=== PATIENT | male | born 1945 | race Caucasian/White ===

== ENCOUNTER 2017-05-27 17:07 | Inpatient (IN) | payer OTHER ==
[2017-05-27 17:53] LABS: #Basophils 0.1 thou/uL (0.0-0.2); #Eosinphils 0.3 thou/uL (0.0-0.7); #Lymphocytes 1.2 thou/uL (1.20-3.40); #Monocytes 0.8 thou/uL (0.11-0.59); #Neutrophils 10.2 thou/uL (1.40-6.50); %Basophils 0.5 % (0.0-1.0); %Eosinophils 2.4 % (0.0-10.0); %Lymphocytes 9.3 % (21.0-51.0); %Monocytes 6.7 % (0.0-10.0); Hematocrit 41.9 % (42.0-52.0); Mean Platelet Volume 7.6 fL (7.4-10.4); Red Blood Cell (RBC) Count 4.82 mill/uL (4.70-6.10); White Blood Cell (WBC) Count 12.6 thou/uL (4.8-10.8)
[2017-05-27 18:02] LABS: PTT 26.5 SEC (22.9-36.1); Prothrombin Time 13.9 SEC (12.0-14.7)
[2017-05-27 18:15] LABS: ALT (SGPT) 23 U/L (8-55); AST (SGOT) 19 U/L (5-34); Alkaline Phosphatase 79 U/L (40-150); Anion Gap 14 mmol/L (10-20); BUN (Urea Nitrogen) 23 mg/dL (8.4-25.7); Bilirubin, Total 0.5 mg/dL (0.2-1.2); Calc. Creatinine Clearance 0 mL/min (70-130); Calcium 9.2 mg/dL (7.8-10.44); Carbon Dioxide 22 mmol/L (23-31); Chloride 103 mmol/L (98-107); Estimated GFR-MDRD 49; Globulin 2.7 g/dL (2.4-3.5); Protein, Total 6.3 g/dL (5.8-8.1)
--- NOTE | 2017-05-27 18:16 | RAD ---
EXAM: LEFT HIP TWO VIEWS 05/27/17 HISTORY: Fall. Pain. COMPARISON: None. FINDINGS: Evaluation is limited due to patient position. Nevertheless, there appears to be an impacted, minima lly displaced fracture involving the femoral neck. IMPRESSION: Left femoral neck fracture. POS: LM
--- NOTE | 2017-05-27 18:19 | RAD ---
EXAM: ONE VIEW CHEST 05/27/17 HISTORY: Fracture. Preoperative exam. COMPARISON: None. FINDINGS: Portable supine view of the chest demonstrates mild rightward deviation of the trachea. Cardiac silh ouette is within normal limits. Pulmonary vessels are within normal limits. The lung volumes are sli ghtly diminished. Opacification of the left lower lobe may represent an area of atelectasis. No pneu mothorax on the supine projection. No osseous abnormalities. IMPRESSION: 1. Left lower lobe atelectasis. 2. Mild rightward deviation of the trachea, nonspecific. Nonemergent chest can be performed for better evaluation. POS: LM
[2017-05-27] MEDS ORDERED: Ondansetron HCl/PF 4 MG/2 ML Vial IVP PRN (19:59)
[2017-05-27] MEDS ORDERED: Acetaminophen 325 MG TAB PO PRN (19:59)
[2017-05-27] MEDS ORDERED: HYDROcodone/Acetaminophen 5/325 mg Tablet PO PRN ×2 (19:59)
[2017-05-27] MEDS ORDERED: Sodium Chloride 0.9% 1,000 ML IV SCH (19:59)
[2017-05-27] MEDS ORDERED: Ondansetron ODT 4 MG TAB SL PRN (19:59)
[2017-05-28 01:42] VITALS: BMI 29.9
[2017-05-28] MEDS ORDERED: CEFAZOLIN/Water 2 GM/20 ML SYRINGE SLOW IVP SCH (06:15)
[2017-05-28] MEDS ORDERED: CEFAZOLIN/Water 2 GM/20 ML SYRINGE ONE (08:05)
--- NOTE | 2017-05-28 08:30 | CON ---
DATE OF CONSULTATION: 05/28/2017 HISTORY OF PRESENT ILLNESS: Mr. Chen is a 71-year-old gentleman who is an inmate at [facility] when he became dizzy today and landed on the toilet and suffered a left hip fracture. PAST MEDICAL HISTORY: Positive for diabetes, hypertension, hypothyroidism, and asthma. ALLERGIES TO MEDICATIONS: Unsure. SOCIAL HISTORY: He does not smoke. He does not drink. He is an inmate at [facility]. PHYSICAL EXAMINATION: Left leg is shortened and in external rotation, pain with manipulation. Sensation is intact distall y. Radiographs showed displaced femoral neck fracture. PLAN: Total hip arthroplasty. He understands the risks of infection, stiffness, nerve or blood ves rocky damage, dislocation, transfusion, , and would like to proceed with surgery.
[2017-05-28] MEDS ORDERED: Fentanyl 100 MCG/2 ML VIAL ONE (09:00)
[2017-05-28] MEDS ORDERED: Ketorolac Tromethamine 30 MG/ML VIAL ONE (09:31)
[2017-05-28] MEDS ORDERED: Lidocaine 2% MPF 10 ML AMP (For Epidural Use) ONE (09:31)
[2017-05-28] MEDS ORDERED: Esmolol 100 MG/10 ML VIAL ONE (09:31)
[2017-05-28] MEDS ORDERED: Propofol 200 MG/20 ML VIAL ONE (09:31)
[2017-05-28] MEDS ORDERED: Succinylcholine Chloride 20 MG/ML 10 ml SYRINGE FS ONE (09:31)
[2017-05-28] MEDS ORDERED: Glycopyrrolate 0.2 MG/ML 5 ML SYRINGE ONE (09:31)
[2017-05-28] MEDS ORDERED: Metoprolol Tartrate 5 MG/5 ML VIAL ONE (09:31)
[2017-05-28] MEDS ORDERED: Metoclopramide HCl 10 MG/2 ML VIAL ONE (09:31)
[2017-05-28] MEDS ORDERED: Ondansetron HCl/PF 4 MG/2 ML Vial ONE (09:31)
[2017-05-28] MEDS ORDERED: Promethazine HCl 25 MG/ML VIAL IM PRN ×2 (09:33→10:47)
[2017-05-28] MEDS ORDERED: traMADol HCl 50 MG TAB PO PRN ×2 (09:33→12:07)
[2017-05-28] MEDS ORDERED: Acetaminophen 325 MG TAB PO PRN (09:33)
[2017-05-28] MEDS ORDERED: Zolpidem Tartrate 5 MG TAB PO PRN (09:33)
[2017-05-28] MEDS ORDERED: HYDROcodone/Acetaminophen 10/325 mg Tablet PO PRN ×2 (09:33)
[2017-05-28] MEDS ORDERED: diphenhydrAMINE 25 MG CAP PO PRN (09:33)
[2017-05-28] MEDS ORDERED: Ondansetron HCl/PF 4 MG/2 ML Vial IVP PRN ×2 (09:33→10:47)
[2017-05-28] MEDS ORDERED: Fentanyl 100 MCG/2 ML VIAL SLOW IVP PRN ×2 (09:33)
[2017-05-28] MEDS ORDERED: Tranexamic Acid 1,000 MG/100 ML BAG ONE ×2 (09:36→11:25)
[2017-05-28] MEDS ORDERED: Tranexamic Acid 1,000 MG in Sodium Chloride 0.9% 100 ML IVPB SCH (09:45)
[2017-05-28] MEDS ORDERED: Meperidine HCl/PF 25 MG/ML VIAL SLOW IVP PRN (10:47)
[2017-05-28] MEDS ORDERED: HYDROmorphone 2 MG/ML VIAL SLOW IVP PRN (10:47)
[2017-05-28] MEDS ORDERED: Promethazine HCl 25 MG/ML VIAL SLOW IVP PRN (10:47)
[2017-05-28] MEDS ORDERED: PROVENTIL INHALER 6.7 G (200 INHALATIONS) INH PRN (11:34)
[2017-05-28] MEDS ORDERED: HumaLOG 300 UNITS/3 ML VIAL SC PRN (11:36)
[2017-05-28] MEDS ORDERED: Dextrose 50% Abboject 50 ML SYRINGE SLOW IVP PRN (11:36)
[2017-05-28] MEDS ORDERED: Dextrose 5% in Water 1,000 ML IV PRN (11:36)
[2017-05-28] MEDS ORDERED: Sodium Chloride 0.9% 1,000 ML IV SCH (11:45)
[2017-05-28] MEDS ORDERED: traMADol HCl 50 MG TAB PO SCH (12:15)
--- NOTE | 2017-05-28 12:56 | RAD ---
LEFT HIP 2 VIEWS: HISTORY: A 71-year-old male recent status post total hip replacement. COMPARISON: 05/27/17. FINDINGS: Recent left total hip replacement changes without evidence for dislocation or periprosthetic fractur e. IMPRESSION: Recent left total hip replacement. POS: LM
[2017-05-28] MEDS: HumaLOG 300 UNITS/3 ML VIAL SC PRN ×2 (13:25→17:10)
[2017-05-28] MEDS: Acetaminophen 500 MG TAB PO SCH ×3 (13:41→23:40)
--- NOTE | 2017-05-28 13:45 | OP ---
DATE OF PROCEDURE: 05/27/2017 PREOPERATIVE DIAGNOSES: Left hip subcapital displaced angulated femoral neck fracture with accompanying underlying osteoarthritis. POSTOPERATIVE DIAGNOSES: Left hip subcapital displaced angulated femoral neck fracture with accompanying underlying osteoarthritis. OPERATIVE PROCEDURE: Press-fit left total hip arthroplasty. SURGEON: Hugo Beyer M.D. STITCHER AROUND: Daquan Mckenna PA-C. ANESTHESIA: General via endotracheal tube. COMPONENTS USED: [facility] Tritanium press-fit 56 mm acetabular shell with an Accolade press-fit 3.5 hip stem, 10 degree polyethylene fixed bearing insert, and V40 metallic femoral head standard offset. FINDINGS: Subcapital displaced angulated femoral neck fracture as described in radiographs. ESTIMATED BLOOD LOSS: 200. DRAINS: None. SPECIMENS: None. COMPLICATIONS: None. COUNTS: Correct. INDICATIONS FOR SURGERY: Og is a 71-year-old male who was transferred to our facility from incarceration. Apparently, he fell resulting in a left hip fracture. He has been admitted by the Trauma Team and our service was consulted for definitive orthopedic management of this problem. PROCEDURE IN DETAIL: After informed consent was obtained in the preoperative holding area, the patient was taken to the operative suite where general anesthesia was induced. The patient was then positioned in the lateral decubitus position. The hip was then prepped and draped in usual sterile fashion. The patient received preoperative antibiotics. Prior to incision, time-out was called and all members of the surgical team agreed upon site, surgeon, and patient. After this, a longitudinal incision was made directly over the trochanter, noted by palpation extending 2 fingerbreadths above and below the trochanter. The deeper subcutaneous layer was undermined with Bovie electrocautery. The iliotibial band was encountered and incised sharply and the plane below this was developed bluntly. A Charnley retractor was placed to hold this opened. The lateral aspect of the trochanter and the abductor muscles were encountered and then reflected anteriorly off the trochanter using Bovie electrocautery. After capsulectomy was performed, copious hemarthrosis was identified. The fracture fragments were noted confirming evidence of fracture at the time of surgery. Provisional neck cut was made using an oscillating saw and the femoral head was then extracted. Attention was then turned to acetabular preparation and sequential reaming was carried out up to the appropriate diameter and a trial was then malleted into place with good firm resistance and no pullout. The permanent acetabular shell was then malleted squarely into place, as was the appropriate liner. Once completed, the wound was copiously irrigated and attention was then turned to femoral preparation. Flexion and external rotation was performed of the exposed thigh and femoral elevators were then placed at the proximal aspect of the wound. Canal finder was used to establish the length of the canal and sequential reaming was carried out, followed by broaching. Once the appropriate stability was established with the trial broaches with both flexion, extension and rotational stability, we did trial with neutral and 2 mm offset incremental necks. Once the appropriate size was decided upon, with good stability noted with flexion, extension, internal and external rotation and shuck being negative , we removed the femoral trial broach and malletted into place the permanent prosthesis with good firm fit, which was also stable to rotation. Again, the hip felt very stable to flexion, extension, internal and external rotation. Leg lengths appeared near anatomic clinically and we were quite happy with prosthesis placement. Copious irrigation was then carried out through the entirety of the wound. Primary closure of the abductors was accomplished with interrupted #2 Vicryl [id number] stitches and the IT band was then closed with interrupted #2 Vicryl, oversewn with a #2 running barbed Quill stitch. Subcutaneous fascia was closed with running barbed Quill stitch and a subcuticular Monocryl barbed Quill stitch was used for skin closure and augmented with skin cement. A sterile dressing was applied. The procedure was terminated without any complication. All counts were correct. The patient was awakened in the operative suite and taken to the recovery room in stable condition. NANCY
--- NOTE | 2017-05-28 14:18 | PDOC.PN ---
- Subjective Encounter Start Date: 05/28/17 Encounter Start Time: 14:16 Subjective: pt seen and examined.Denies any chest pain/sob.no nausea/vomiting/AP -: s/p left THR for fall and fracture -: care discussed using writing board as pt is deaf - Objective MAR Reviewed: Yes Vital Signs & Weight: Vital Signs (12 hours) Temp Pulse Resp BP Pulse Ox 05/28/17 13:35 98 05/28/17 04:00 98.1 F 64 18 133/78 98 Weight Admit Weight 226 lb 15.968 oz Weight 226 lb 15.968 oz I&O: 05/27/17 05/28/17 05/29/17 06:59 06:59 06:59 Intake Total 1027.5 Output Total 1075 Balance -47.5 Result Diagrams: 05/27/17 17:45 05/27/17 17:45 Additional Labs: Accuchecks 05/28/17 05/27/17 06:06 21:13 POC Glucose 129 H 122 H Phys Exam - Physical Examination Constitutional: NAD HEENT: PERRLA, sclera anicteric, oral pharynx no lesions mucosa is dry Neck: no nodes, no JVD, supple, full ROM Respiratory: no wheezing, no rales, no rhonchi, clear to auscultation bilateral Cardiovascular: RRR, no significant murmur, no rub, gallop Gastrointestinal: soft, non-tender, no distention, positive bowel sounds Musculoskeletal: no edema, pulses present Neurological: non-focal, normal sensation, moves all 4 limbs Psychiatric: normal affect, A&O x 3 Skin: no rash Dx/Plan (1) JEFERSON (acute kidney injury) Code(s): N17.9 - ACUTE KIDNEY FAILURE, UNSPECIFIED Status: Acute (2) DM2 (diabetes mellitus, type 2) Status: Chronic Qualifiers: Diabetes mellitus complication status: with hyperglycemia (3) HTN (hypertension) Code(s): I10 - ESSENTIAL (PRIMARY) HYPERTENSION Status: Chronic Qualifiers: Hypertension type: essential hypertension Qualified Code(s): I10 - Essential (primary) hypertension (4) HLD (hyperlipidemia) Code(s): E78.5 - HYPERLIPIDEMIA, UNSPECIFIED Status: Chronic (5) Asthma Code(s): J45.909 - UNSPECIFIED ASTHMA, UNCOMPLICATED Status: Chronic Qualifiers: Asthma severity: mild (6) S/P total hip arthroplasty Code(s): Z96.649 - PRESENCE OF UNSPECIFIED ARTIFICIAL HIP JOINT Status: Acute Qualifiers: Laterality: left Qualified Code(s): Z96.642 - Presence of left artificial hip joint (7) Leucocytosis Code(s): D72.829 - ELEVATED WHITE BLOOD CELL COUNT, UNSPECIFIED Status: Acute (8) Fall Code(s): W19.XXXA - UNSPECIFIED FALL, INITIAL ENCOUNTER Status: Acute Qualifiers: Encounter type: initial encounter Qualified Code(s): W19.XXXA - Unspecified fall, initial encounter - Plan PT/OT, incentive spirometry, DVT proph w/SCDs add ISS and accuchecks achs.hold metformin for JEFERSON. -: start IVF and recheck labs in am. -: WBC slightly high -likley reactive.monitor. -: restart home meds, -: hemodynamically stable. will follow. * .ASA BID for DVT prophylaxis. * PPI for GI prophylaxis. Review of Systems - Review of Systems Constitutional: negative: Fever, Chills, Sweats, Weakness, Malaise, Other Respiratory: negative: Cough, Dry, Shortness of Breath, Hemoptysis, SOB with Excertion, Pleuritic Pain, Sputum, Wheezing Cardiovascular: negative: Chest Pain, Palpitations, Orthopnea, Paroxysmal Noc. Dyspnea, Edema, Light Headedness, Other Gastrointestinal: negative: Nausea, Vomiting, Abdominal Pain, Diarrhea, Constipation, Melena, Hematochezia, Other Genitourinary: negative: Dysuria, Frequency, Incontinence, Hematuria, Retention , Other Musculoskeletal: negative: Neck Pain, Shoulder Pain, Arm Pain, Back Pain, Hand Pain, Leg Pain, Foot Pain, Other Neurological: negative: Weakness, Numbness, Incoordination, Change in Speech, Confusion, Seizures, Other - Medications/Allergies Allergies/Adverse Reactions: Allergies Allergy/AdvReac Type Severity Reaction Status Date / Time GLYCOAMINOGLYCANS Allergy Uncoded 05/28/17 01:23 Medications: Current Medications Acetaminophen (Tylenol) 1,000 mg PO Q6HR UNIQUE Last Admin: 05/28/17 13:41 Dose: 1,000 mg Albuterol Sulfate (Proventil Hfa) 1 puff INH QID PRN PRN Reason: SOB &/or Wheezing Albuterol/Ipratropium (Duoneb) 3 ml NEB [id number] PRN PRN Reason: SOB &/or Wheezing Aspirin (Aspirin) 325 mg PO BID [facility] Atorvastatin Calcium (Lipitor) 10 mg PO DAILY [facility] Cefazolin Sodium (Ancef) 2 gm SLOW IVP 0000,0800,1600 [facility] Stop: 05/29/17 00:01 Dextrose/Water (Dextrose 50%) 25 gm SLOW IVP PRN PRN PRN Reason: Hypoglycemia Diphenhydramine HCl (Benadryl) 25 mg PO Q6H PRN PRN Reason: Itching Ferrous Gluconate (Fergon) 324 mg PO BID [facility] Glipizide (Glucotrol) 10 mg PO DAILY-AC [facility] Glucagon (Glucagon) 1 mg IM PRN PRN PRN Reason: Hypoglycemia Dextrose/Water (D5w) 1,000 mls @ 0 mls/hr IV .Q0M PRN; As Directed PRN Reason: Hypoglycemia Sodium Chloride (Normal Saline 0.9%) 1,000 mls @ 75 mls/hr IV .[id number] [facility] Last Admin: 05/28/17 13:50 Dose: Not Given Insulin Human Lispro (Humalog) 0 units SC .MODERATE SLIDING SC PRN PRN Reason: Moderate Correctional Scale Insulin Human Lispro (Humalog) 0 units SC .BEDTIME SLIDING SC PRN PRN Reason: Bedtime Correctional Scale Iron/Minerals/Multivitamins (Theragran M) 1 tab PO DAILY [facility] Levothyroxine Sodium (Synthroid) 50 mcg PO 0600 [facility] Mometasone Furoate (Asmanex Hfa 100 Mcg) 1 puff INH BID-RT [facility] Ondansetron HCl (Zofran) 4 mg IVP Q6H PRN PRN Reason: Nausea/Vomiting Pantoprazole Sodium (Protonix) 40 mg PO DAILY [facility] Promethazine HCl (Phenergan) 12.5 mg IM Q4H PRN PRN Reason: Nausea/Vomiting Senna/Docusate Sodium (Senokot S) 2 tab PO BID [facility] Sodium Chloride (Flush - Normal Saline) 10 ml IVF PRN PRN PRN Reason: Saline Flush Tramadol HCl (Ultram) 50 mg PO Q6H PRN PRN Reason: mod-severe pain Verapamil HCl (Calan Sr) 120 mg PO BID [facility]
--- NOTE | 2017-05-28 14:20 | CT ---
CT OF THE BRAIN WITHOUT CONTRAST 05/28/17 COMPARISON: None. HISTORY: Fall with head trauma. Patient is on aspirin. TECHNIQUE: Multiple contiguous axial images were obtained in a CT of the brain without contrast. FINDINGS: The brain is normal in morphology and attenuation without focal lesions or confluent areas of infarc tion. There is no evidence of hydrocephalus, intracranial hemorrhage or extra-axial fluid collection . The calvarium and overlying soft tissues are unremarkable. Postsurgical changes are seen in the left mastoid region. IMPRESSION: No evidence of acute intracranial abnormality. POS: [facility]
--- NOTE | 2017-05-28 14:27 | CT ---
CT OF THE CERVICAL SPINE WITHOUT CONTRAST: 05/28/17 COMPARISON: None. HISTORY: Fall with head trauma and neck pain. TECHNIQUE: Multiple contiguous axial images were obtained in a CT of the cervical spine without contrast. Sagit papo and coronal reformats were performed. FINDINGS: There are moderate degenerative changes in the cervical spine. The vertebral bodies demonstrate norm al height and alignment without fracture or subluxation. No prevertebral soft tissue swelling is see n. The posterior facets are well aligned. Normal alignment of the skull base with the cervical spine is seen. IMPRESSION: Moderate degenerative changes of the cervical spine without acute osseous abnormality. POS: LM
[2017-05-28] MEDS: traMADol HCl 50 MG TAB PO SCH ×2 (14:57→20:39)
--- NOTE | 2017-05-28 15:34 | HP ---
DATE OF ADMISSION: 05/28/2017 ATTENDING PHYSICIAN: Pedro Pagan M.D. TRAUMA ACTIVATION: Not applicable. HISTORY OF PRESENT ILLNESS: Og Chen is a 71-year-old male who was admitted overnight by the [facility] opedic Service. Trauma Services was informed of admission this a.m. Per documentation, the patient is a prisoner and fell while getting up from the toilet. He states that his legs gave out, which c aused the fall. He was evaluated in [facility] and found to have a left hip fracture. He w as transferred to [facility] for further management of this injury. There is a report of t he patient striking his head. There is no CT scan of the brain or C-spine available. The patient d enies loss of consciousness. There is report of some dizziness. The patient is deaf; however, he d oes not know how to sign. History obtained is primarily from records review given patient's limited ability to hear. PAST MEDICAL HISTORY: The patient has a history of chronic low back pain, diabetes, hypertension, h ypothyroidism, and asthma as well as hearing loss. ALLERGIES: He has a reported history of allergies to GLYCOSAMINOGLYCANS. HOME MEDICATIONS: List includes atorvastatin 10 mg p.o. at bedtime, aspirin 81 mg p.o. daily, calci um, vitamin D3 supplement, glipizide 10 mg p.o. daily, hydrochlorothiazide 25 mg p.o. daily, Synthro id 50 mcg p.o. daily, lisinopril 20 mg p.o. daily, metformin 500 mg p.o. b.i.d., omeprazole 20 mg p. o. daily, potassium supplementation 20 mEq p.o. b.i.d., Proventil HFA 4 times a day p.r.n., Qvar b.i .d., verapamil 100 mg p.o. b.i.d. PAST SURGICAL HISTORY: Unclear at this time. SOCIAL HISTORY: He is currently an inmate at [facility]. Denies alcohol, tobacco or illic it drug use. FAMILY HISTORY: Unclear at this time. REVIEW OF SYSTEMS: Positive for dizziness and vertigo. PHYSICAL EXAMINATION: VITAL SIGNS: This morning temperature 98.1, pulse 64, respirations 18, O2 sat 98% on 2 liters via n pipo cannula, blood pressure 133/78. GENERAL: Well-developed male in no acute distress, resting in bed. PULMONARY: Normal work of breathing. Symmetric rise. CARDIOVASCULAR: Regular rate and rhythm. GASTROINTESTINAL: Abdomen is soft, nontender, nondistended. MUSCULOSKELETAL: Bilateral upper extremities within normal limits. Left lower extremity is shorten ed and externally rotated with limited range of motion secondary to pain. He is neurovascularly int act distal to the site of injury. NEUROLOGIC: No focal deficit noted. LABORATORY FINDINGS: WBC 12.6, hemoglobin 13.4, hematocrit 41.9, platelet count 230. INR 1.1. Sod ium 135, potassium 4.2, chloride 103, carbon dioxide 22, BUN 23, creatinine 1.42, glucose 129. AST a nd ALT within normal limits. RADIOGRAPHIC FINDINGS: Chest x-ray was read by Radiology, was read as left lower lobe atelectasis. X-ray of the left hip demonstrated a left femoral neck fracture. ASSESSMENT: 1. Status post fall. 2. Left femoral neck fracture. 3. Acute traumatic pain. 4. History of hypertension. 5. History of diabetes. 6. Communication barrier secondary to patient's hearing loss. 7. History of head trauma in the setting of aspirin use. PLAN: The patient is going to the operating room with Orthopedic Surgery this morning. Perioperativ e pain management. We will obtain CTA of the head and neck given patient's dizziness post-fall. [facility] Medicine has been consulted for medical management. Postoperative PT, OT. Discussed with Or thopedic Surgery. Trauma attending notified of admission.
[2017-05-28] MEDS: CEFAZOLIN/Water 2 GM/20 ML SYRINGE SLOW IVP SCH ×2 (17:10→23:40)
[2017-05-28] MEDS: Mometasone 100 MCG HFA INHALER INH SCH (19:20)
[2017-05-28] MEDS: Ferrous Gluconate 324 MG TAB PO SCH (20:41)
[2017-05-28] MEDS: Aspirin 325 MG TAB PO SCH (20:41)
[2017-05-28] MEDS: Senokot S 8.6-50 MG TAB PO SCH (20:41)
[2017-05-29] MEDS: traMADol HCl 50 MG TAB PO SCH ×4 (02:30→20:44)
[2017-05-29 05:38] LABS: Hematocrit 39.6 % (42.0-52.0); Mean Platelet Volume 8.3 fL (7.4-10.4); Red Blood Cell (RBC) Count 4.57 mill/uL (4.70-6.10); White Blood Cell (WBC) Count 8.4 thou/uL (4.8-10.8)
[2017-05-29 05:54] LABS: Anion Gap 14 mmol/L (10-20); BUN (Urea Nitrogen) 22 mg/dL (8.4-25.7); Calc. Creatinine Clearance 82 mL/min (70-130); Calcium 8.3 mg/dL (7.8-10.44); Carbon Dioxide 21 mmol/L (23-31); Chloride 104 mmol/L (98-107); Estimated GFR-MDRD 58
[2017-05-29] MEDS: Acetaminophen 500 MG TAB PO SCH ×3 (05:54→17:24)
[2017-05-29] MEDS: Levothyroxine Sodium 50 MCG TAB PO SCH (05:54)
[2017-05-29] MEDS: Mometasone 100 MCG HFA INHALER INH SCH ×2 (07:00→19:26)
[2017-05-29] MEDS: glipiZIDE 10 MG TAB PO SCH (07:55)
[2017-05-29] MEDS: Aspirin 325 MG TAB PO SCH ×2 (07:56→20:45)
[2017-05-29] MEDS: Ferrous Gluconate 324 MG TAB PO SCH ×2 (07:56→20:45)
[2017-05-29] MEDS: Verapamil SR 120 MG TAB PO SCH ×2 (07:56→20:45)
[2017-05-29] MEDS: Atorvastatin Calcium 10 MG TAB PO SCH (07:56)
[2017-05-29] MEDS: Senokot S 8.6-50 MG TAB PO SCH ×2 (07:56→20:45)
[2017-05-29] MEDS: Multivitamin W/ Minerals 1 TAB PO SCH (08:11)
[2017-05-29] MEDS: Hydrochlorothiazide 25 MG TAB PO SCH (09:54)
[2017-05-29] MEDS: Lisinopril 20 MG TAB PO SCH (09:54)
--- NOTE | 2017-05-29 10:01 | PDOC.PN ---
- Subjective Encounter Start Date: 05/29/17 Encounter Start Time: 09:59 Subjective: feels well but has sore throat .no cough/SOB.no fever/chills/ -: no chest pain. -: commuicated with writing - Objective MAR Reviewed: Yes Vital Signs & Weight: Vital Signs (12 hours) Temp Pulse Resp BP BP Pulse Ox 05/29/17 09:54 135/83 05/29/17 08:00 97.4 F L 76 18 135/83 94 L 05/29/17 07:02 94 L 05/29/17 07:00 73 16 05/29/17 05:50 97.9 F 75 16 141/89 H 89 L 05/29/17 03:50 93 L Weight Admit Weight 226 lb 15.968 oz Weight 226 lb 15.968 oz I&O: 05/28/17 05/29/17 05/30/17 06:59 06:59 06:59 Intake Total 1027.5 1220 Output Total 1075 1250 Balance -47.5 -30 Result Diagrams: 05/29/17 05:08 05/29/17 05:08 Additional Labs: Accuchecks 05/29/17 05/28/17 05/28/17 05:46 21:39 16:53 POC Glucose 165 H 143 H 221 H Phys Exam - Physical Examination Constitutional: NAD HEENT: PERRLA, moist MMs, sclera anicteric, oral pharynx no lesions Neck: no nodes, no JVD, supple, full ROM Respiratory: no wheezing, no rales, no rhonchi, clear to auscultation bilateral Cardiovascular: RRR, no significant murmur, no rub, gallop Gastrointestinal: soft, non-tender, no distention, positive bowel sounds Musculoskeletal: no edema, pulses present Neurological: non-focal, normal sensation, moves all 4 limbs Psychiatric: normal affect, A&O x 3 Skin: no rash Dx/Plan (1) JEFERSON (acute kidney injury) Code(s): N17.9 - ACUTE KIDNEY FAILURE, UNSPECIFIED Status: Resolved (2) DM2 (diabetes mellitus, type 2) Status: Chronic Qualifiers: Diabetes mellitus complication status: with hyperglycemia (3) HTN (hypertension) Code(s): I10 - ESSENTIAL (PRIMARY) HYPERTENSION Status: Chronic Qualifiers: Hypertension type: essential hypertension Qualified Code(s): I10 - Essential (primary) hypertension (4) HLD (hyperlipidemia) Code(s): E78.5 - HYPERLIPIDEMIA, UNSPECIFIED Status: Chronic (5) Asthma Code(s): J45.909 - UNSPECIFIED ASTHMA, UNCOMPLICATED Status: Chronic Qualifiers: Asthma severity: mild (6) S/P total hip arthroplasty Code(s): Z96.649 - PRESENCE OF UNSPECIFIED ARTIFICIAL HIP JOINT Status: Acute Qualifiers: Laterality: left Qualified Code(s): Z96.642 - Presence of left artificial hip joint (7) Leucocytosis Code(s): D72.829 - ELEVATED WHITE BLOOD CELL COUNT, UNSPECIFIED Status: Resolved (8) Fall Code(s): W19.XXXA - UNSPECIFIED FALL, INITIAL ENCOUNTER Status: Acute Qualifiers: Encounter type: initial encounter Qualified Code(s): W19.XXXA - Unspecified fall, initial encounter - Plan DVT proph w/SCDs check for influenza and strept throat.add Empiric PO ABx for laryngitis -: cont meds as belwo. -: hemodynamically stable. -: ISS w accuchecks. BP stable. -: will follow * . Review of Systems - Review of Systems Constitutional: negative: Fever, Chills, Sweats, Weakness, Malaise, Other ENT: Throat Pain Respiratory: negative: Cough, Dry, Shortness of Breath, Hemoptysis, SOB with Excertion, Pleuritic Pain, Sputum, Wheezing Cardiovascular: negative: Chest Pain, Palpitations, Orthopnea, Paroxysmal Noc. Dyspnea, Edema, Light Headedness, Other Gastrointestinal: negative: Nausea, Vomiting, Abdominal Pain, Diarrhea, Constipation, Melena, Hematochezia, Other Genitourinary: negative: Dysuria, Frequency, Incontinence, Hematuria, Retention , Other Musculoskeletal: Other (right knee pain). negative: Neck Pain, Shoulder Pain, Arm Pain, Back Pain, Hand Pain, Leg Pain, Foot Pain Neurological: negative: Weakness, Numbness, Incoordination, Change in Speech, Confusion, Seizures, Other - Medications/Allergies Allergies/Adverse Reactions: Allergies Allergy/AdvReac Type Severity Reaction Status Date / Time GLYCOAMINOGLYCANS Allergy Uncoded 05/28/17 01:23 Medications: Current Medications Acetaminophen (Tylenol) 1,000 mg PO Q6HR [facility] Last Admin: 05/29/17 05:54 Dose: 1,000 mg Albuterol Sulfate (Proventil Hfa) 1 puff INH QID PRN PRN Reason: SOB &/or Wheezing Albuterol/Ipratropium (Duoneb) 3 ml NEB [id number] PRN PRN Reason: SOB &/or Wheezing Amoxicillin/Clavulanate Potassium (Augmentin) 875 mg PO Q12HR [facility] [place] Aspirin (Aspirin) 325 mg PO BID [facility] Last Admin: 05/29/17 07:56 Dose: 325 mg Atorvastatin Calcium (Lipitor) 10 mg PO DAILY [facility] Last Admin: 05/29/17 07:56 Dose: 10 mg Dextrose/Water (Dextrose 50%) 25 gm SLOW IVP PRN PRN PRN Reason: Hypoglycemia Diphenhydramine HCl (Benadryl) 25 mg PO Q6H PRN PRN Reason: Itching Ferrous Gluconate (Fergon) 324 mg PO BID [facility] [place] Last Admin: 05/29/17 07:56 Dose: 324 mg Glipizide (Glucotrol) 10 mg PO DAILY-[facility] Last Admin: 05/29/17 07:55 Dose: 10 mg Glucagon (Glucagon) 1 mg IM PRN PRN PRN Reason: Hypoglycemia Hydrochlorothiazide (Hydrochlorothiazide) 25 mg PO DAILY [facility] [place] Last Admin: 05/29/17 09:54 Dose: 25 mg Dextrose/Water (D5w) 1,000 mls @ 0 mls/hr IV .Q0M PRN; As Directed PRN Reason: Hypoglycemia Insulin Human Lispro (Humalog) 0 units SC .MODERATE SLIDING SC PRN PRN Reason: Moderate Correctional Scale Last Admin: 05/28/17 17:10 Dose: 4 unit Insulin Human Lispro (Humalog) 0 units SC .BEDTIME SLIDING SC PRN PRN Reason: Bedtime Correctional Scale Iron/Minerals/Multivitamins (Theragran M) 1 tab PO DAILY [facility] Last Admin: 05/29/17 08:11 Dose: 1 tab Levothyroxine Sodium (Synthroid) 50 mcg PO 0600 [facility] Last Admin: 05/29/17 05:54 Dose: 50 mcg Lisinopril (Zestril) 20 mg PO DAILY [facility] Last Admin: 05/29/17 09:54 Dose: 20 mg Mometasone Furoate (Asmanex Hfa 100 Mcg) 1 puff INH BID-RT [facility] Last Admin: 05/29/17 07:00 Dose: 1 puff Ondansetron HCl (Zofran) 4 mg IVP Q6H PRN PRN Reason: Nausea/Vomiting Pantoprazole Sodium (Protonix) 40 mg PO DAILY [facility] Last Admin: 05/29/17 07:56 Dose: 40 mg Promethazine HCl (Phenergan) 12.5 mg IM Q4H PRN PRN Reason: Nausea/Vomiting Senna/Docusate Sodium (Senokot S) 2 tab PO BID [facility] Last Admin: 05/29/17 07:56 Dose: 2 tab Sodium Chloride (Flush - Normal Saline) 10 ml IVF PRN PRN PRN Reason: Saline Flush Tramadol HCl (Ultram) 50 mg PO Q6H PRN PRN Reason: mod-severe pain Tramadol HCl (Ultram) 50 mg PO Q6H [facility] Last Admin: 05/29/17 07:57 Dose: 50 mg Verapamil HCl (Calan Sr) 120 mg PO BID [facility] Last Admin: 05/29/17 07:56 Dose: 120 mg
[2017-05-29] MEDS ORDERED: Amoxicillin/Potassium Clav 875 MG TAB PO SCH (10:15)
[2017-05-29] MEDS: HumaLOG 300 UNITS/3 ML VIAL SC PRN (14:10)
--- NOTE | 2017-05-29 16:49 | PRG ---
DATE OF SERVICE: 05/29/2017 SUBJECTIVE: Mr. Og Chen is postop day #1 status post left total hip arthroplasty. There were no acute overnight events. The patient localizes no complaint. He has not yet had the opportunity to work with physical therapy. He is somewhat hypertensive this morning. OBJECTIVE: VITAL SIGNS: Temperature 97.4, pulse 76, respirations 18, O2 sat 94% on 2 liters, blood pressure 13 5/83. GENERAL: Well-developed, well-nourished, elderly appearing male in no acute distress. PULMONARY: Normal work of breathing. Symmetric rise. CARDIOVASCULAR: Regular rate and rhythm. GASTROINTESTINAL: Abdomen is soft, nontender, nondistended. MUSCULOSKELETAL: Moves all extremities x4. NEUROLOGIC: No focal deficit noted. LABORATORY DATA: WBC 8.4, hemoglobin 12.9, hematocrit 39.6, platelet count 175. Sodium 135, potass ium 4.0, chloride 104, carbon dioxide 21, BUN 22, creatinine 1.24, glucose 164. ASSESSMENT: 1. Status post fall from toilet. 2. Left hip fracture, postop day #1 status post total hip repair. 3. Acute traumatic pain secondary to above. 4. History of hypertension. 5. History of diabetes. 6. Communication barrier secondary to patient's hearing loss. PLAN: Continue supportive care. Continue pain management as ordered. PT and OT. Encourage pulmon [place] toilet and mobility. Discussed with Orthopedic Surgery. If patient remains stable, may transfe r back to intermediate tomorrow. Patient discussed with trauma attending. All questions were answered at the time of this dictation.
[2017-05-29] MEDS: Amoxicillin/Potassium Clav 875 MG TAB PO SCH (20:45)
[2017-05-30] MEDS: Acetaminophen 500 MG TAB PO SCH ×4 (00:17→17:32)
[2017-05-30] MEDS: traMADol HCl 50 MG TAB PO SCH ×4 (02:56→20:00)
[2017-05-30 05:37] LABS: Hematocrit 37.5 % (42.0-52.0); Mean Platelet Volume 7.8 fL (7.4-10.4); Red Blood Cell (RBC) Count 4.36 mill/uL (4.70-6.10); White Blood Cell (WBC) Count 10.6 thou/uL (4.8-10.8)
[2017-05-30] MEDS: Levothyroxine Sodium 50 MCG TAB PO SCH (05:44)
[2017-05-30] MEDS: HumaLOG 300 UNITS/3 ML VIAL SC PRN ×2 (06:22→12:17)
[2017-05-30] MEDS: Mometasone 100 MCG HFA INHALER INH SCH ×2 (07:21→19:30)
[2017-05-30] MEDS ORDERED: Chloraseptic Spray 180 ml Bottle PO PRN (08:40)
[2017-05-30] MEDS: glipiZIDE 10 MG TAB PO SCH (08:46)
[2017-05-30] MEDS: Aspirin 325 MG TAB PO SCH ×2 (08:48→20:01)
[2017-05-30] MEDS: Amoxicillin/Potassium Clav 875 MG TAB PO SCH ×2 (08:48→20:01)
[2017-05-30] MEDS: Verapamil SR 120 MG TAB PO SCH ×2 (08:48→20:02)
[2017-05-30] MEDS: Hydrochlorothiazide 25 MG TAB PO SCH (08:48)
[2017-05-30] MEDS: Atorvastatin Calcium 10 MG TAB PO SCH (08:49)
[2017-05-30] MEDS: Senokot S 8.6-50 MG TAB PO SCH ×2 (08:49→20:02)
[2017-05-30] MEDS: Ferrous Gluconate 324 MG TAB PO SCH ×2 (08:49→20:02)
[2017-05-30] MEDS: Multivitamin W/ Minerals 1 TAB PO SCH (08:49)
[2017-05-30] MEDS: Lisinopril 20 MG TAB PO SCH (08:49)
--- NOTE | 2017-05-30 11:31 | PDOC.PN ---
- Subjective Encounter Start Date: 05/30/17 Encounter Start Time: 11:30 Subjective: Pt seen and examined.feels OK. reports that he has the cough and vertigo -: for years - Objective MAR Reviewed: Yes Vital Signs & Weight: Vital Signs (12 hours) Temp Pulse Resp BP BP Pulse Ox 05/30/17 08:49 150/88 H 05/30/17 07:55 97.9 F 80 18 150/88 H 93 L 05/30/17 04:00 98.1 F 84 16 158/83 H 91 L 05/30/17 00:00 98 F 81 18 155/89 H 93 L Weight Admit Weight 226 lb 15.968 oz Weight 226 lb 15.968 oz I&O: 05/29/17 05/30/17 05/31/17 06:59 06:59 06:59 Intake Total 1220 1960 Output Total 1250 2950 Balance -30 -990 Result Diagrams: 05/30/17 05:00 05/29/17 05:08 Additional Labs: Accuchecks 05/30/17 05/30/17 05/29/17 11:04 05:35 19:51 POC Glucose 277 H 196 H 218 H 05/29/17 05/29/17 16:15 10:49 POC Glucose 132 H 193 H Microbiology 05/29/17 12:52 Throat Group A Streptococcus Culture - Final negative 05/29/17 12:00 Throat Group A Streptococcus Screen (ANKUSH) - Final negative 05/29/17 12:00 Nasal swab Influenza Types A,B Direct EIA - Final negative Phys Exam - Physical Examination Constitutional: NAD HEENT: PERRLA, moist MMs, sclera anicteric, oral pharynx no lesions Neck: no nodes, no JVD, supple, full ROM Respiratory: no wheezing, no rales, no rhonchi, clear to auscultation bilateral Cardiovascular: RRR, no significant murmur, no rub, gallop Gastrointestinal: soft, non-tender, no distention, positive bowel sounds Musculoskeletal: no edema, pulses present Neurological: non-focal, normal sensation, moves all 4 limbs Psychiatric: normal affect, A&O x 3 Skin: no rash Dx/Plan (1) DM2 (diabetes mellitus, type 2) Status: Chronic Qualifiers: Diabetes mellitus complication status: with hyperglycemia (2) JEFERSON (acute kidney injury) Code(s): N17.9 - ACUTE KIDNEY FAILURE, UNSPECIFIED Status: Resolved (3) HTN (hypertension) Code(s): I10 - ESSENTIAL (PRIMARY) HYPERTENSION Status: Chronic Qualifiers: Hypertension type: essential hypertension Qualified Code(s): I10 - Essential (primary) hypertension (4) HLD (hyperlipidemia) Code(s): E78.5 - HYPERLIPIDEMIA, UNSPECIFIED Status: Chronic (5) Asthma Code(s): J45.909 - UNSPECIFIED ASTHMA, UNCOMPLICATED Status: Chronic Qualifiers: Asthma severity: mild (6) S/P total hip arthroplasty Code(s): Z96.649 - PRESENCE OF UNSPECIFIED ARTIFICIAL HIP JOINT Status: Acute Qualifiers: Laterality: left Qualified Code(s): Z96.642 - Presence of left artificial hip joint (7) Leucocytosis Code(s): D72.829 - ELEVATED WHITE BLOOD CELL COUNT, UNSPECIFIED Status: Resolved (8) Fall Code(s): W19.XXXA - UNSPECIFIED FALL, INITIAL ENCOUNTER Status: Acute Qualifiers: Encounter type: initial encounter Qualified Code(s): W19.XXXA - Unspecified fall, initial encounter - Plan continue antibiotics, PT/OT, out of bed/ambulate, DVT proph w/SCDs Cont Augmentin for naother 5 days.add prn antivert. -: Bp meds restarted . monitor. -: hemodynamically stable. -: sugars running high. increase SSI and restart metformin as Cr improved. -: Ok to DC w rehab back to C from side * . Review of Systems - Review of Systems Constitutional: Weakness. negative: Fever, Chills, Sweats, Malaise, Other Eyes: negative: Pain, Vision Change, Conjunctivae Inflammation, Eyelid Inflammation, Redness, Other ENT: negative: Ear Pain, Ear Discharge, Nose Pain, Nose Discharge, Nose Congestion, Mouth Pain, Mouth Swelling, Throat Pain, Throat Swelling, Other Respiratory: Cough. negative: Dry, Shortness of Breath, Hemoptysis, SOB with Excertion, Pleuritic Pain, Sputum, Wheezing Cardiovascular: negative: Chest Pain, Palpitations, Orthopnea, Paroxysmal Noc. Dyspnea, Edema, Light Headedness, Other Gastrointestinal: negative: Nausea, Vomiting, Abdominal Pain, Diarrhea, Constipation, Melena, Hematochezia, Other Genitourinary: negative: Dysuria, Frequency, Incontinence, Hematuria, Retention , Other Musculoskeletal: negative: Neck Pain, Shoulder Pain, Arm Pain, Back Pain, Hand Pain, Leg Pain, Foot Pain, Other Neurological: negative: Weakness, Numbness, Incoordination, Change in Speech, Confusion, Seizures, Other - Medications/Allergies Allergies/Adverse Reactions: Allergies Allergy/AdvReac Type Severity Reaction Status Date / Time GLYCOAMINOGLYCANS Allergy Uncoded 05/28/17 01:23 Medications: Current Medications Acetaminophen (Tylenol) 1,000 mg PO Q6HR [facility] Last Admin: 05/30/17 05:44 Dose: 1,000 mg Albuterol Sulfate (Proventil Hfa) 1 puff INH QID PRN PRN Reason: SOB &/or Wheezing Albuterol/Ipratropium (Duoneb) 3 ml NEB [id number] PRN PRN Reason: SOB &/or Wheezing Amoxicillin/Clavulanate Potassium (Augmentin) 875 mg PO Q12HR [facility] Last Admin: 05/30/17 08:48 Dose: 875 mg Aspirin (Aspirin) 325 mg PO BID [facility] Last Admin: 05/30/17 08:48 Dose: 325 mg Atorvastatin Calcium (Lipitor) 10 mg PO DAILY [facility] Last Admin: 05/30/17 08:49 Dose: 10 mg Dextrose/Water (Dextrose 50%) 25 gm SLOW IVP PRN PRN PRN Reason: Hypoglycemia Diphenhydramine HCl (Benadryl) 25 mg PO Q6H PRN PRN Reason: Itching Ferrous Gluconate (Fergon) 324 mg PO BID [facility] Last Admin: 05/30/17 08:49 Dose: 324 mg Glipizide (Glucotrol) 10 mg PO DAILY-[facility] Last Admin: 05/30/17 08:46 Dose: 10 mg Glucagon (Glucagon) 1 mg IM PRN PRN PRN Reason: Hypoglycemia Hydrochlorothiazide (Hydrochlorothiazide) 25 mg PO DAILY [facility] Last Admin: 05/30/17 08:48 Dose: 25 mg Dextrose/Water (D5w) 1,000 mls @ 0 mls/hr IV .Q0M PRN; As Directed PRN Reason: Hypoglycemia Insulin Human Lispro (Humalog) 0 units SC .MODERATE SLIDING SC PRN PRN Reason: Moderate Correctional Scale Last Admin: 05/30/17 06:22 Dose: 2 unit Insulin Human Lispro (Humalog) 0 units SC .BEDTIME SLIDING SC PRN PRN Reason: Bedtime Correctional Scale Last Admin: 05/29/17 20:47 Dose: 2 unit Iron/Minerals/Multivitamins (Theragran M) 1 tab PO DAILY [facility] Last Admin: 05/30/17 08:49 Dose: 1 tab Levothyroxine Sodium (Synthroid) 50 mcg PO 0600 [facility] Last Admin: 05/30/17 05:44 Dose: 50 mcg Lisinopril (Zestril) 20 mg PO DAILY [facility] Last Admin: 05/30/17 08:49 Dose: 20 mg Mometasone Furoate (Asmanex Hfa 100 Mcg) 1 puff INH BID-RT [facility] Last Admin: 05/30/17 07:21 Dose: 1 puff Ondansetron HCl (Zofran) 4 mg IVP Q6H PRN PRN Reason: Nausea/Vomiting Pantoprazole Sodium (Protonix) 40 mg PO DAILY [facility] Last Admin: 05/30/17 08:49 Dose: 40 mg Phenol (Chloraseptic [place] 180 Ml Bot) 0 ml PO BIDPRN PRN PRN Reason: Sore Throat Promethazine HCl (Phenergan) 12.5 mg IM Q4H PRN PRN Reason: Nausea/Vomiting Senna/Docusate Sodium (Senokot S) 2 tab PO BID [facility] Last Admin: 05/30/17 08:49 Dose: 2 tab Sodium Chloride (Flush - Normal Saline) 10 ml IVF PRN PRN PRN Reason: Saline Flush Tramadol HCl (Ultram) 50 mg PO Q6H PRN PRN Reason: mod-severe pain Tramadol HCl (Ultram) 50 mg PO Q6H [facility] Last Admin: 05/30/17 08:46 Dose: 50 mg Verapamil HCl (Calan Sr) 120 mg PO BID [facility] Last Admin: 05/30/17 08:48 Dose: 120 mg
[2017-05-30] MEDS ORDERED: Dextrose 50% Abboject 50 ML SYRINGE SLOW IVP PRN (11:35)
[2017-05-30] MEDS ORDERED: Dextrose 5% in Water 1,000 ML IV PRN (11:35)
[2017-05-30] MEDS ORDERED: metFORMIN 500 MG TAB PO SCH (11:45)
[2017-05-30] MEDS ORDERED: Ketorolac Tromethamine 30 MG/ML VIAL IVP PRN (12:57)
--- NOTE | 2017-05-30 13:40 | PRG ---
DATE OF SERVICE: 05/30/2017 SUBJECTIVE: Mr. Chen is status post left hip fracture repair, has no complaints today. OBJECTIVE: VITAL SIGNS: He is afebrile. Vital signs are stable, tolerating diet. ABDOMEN: Soft and nontender. EXTREMITIES: No limb threatening ischemia. ASSESSMENT: Postoperative left hip fracture repair. PLAN: Likely can to be discharged to [facility] for physical therapy there.
--- NOTE | 2017-05-30 15:24 | PRG ---
DATE OF SERVICE: 05/30/2017 SUBJECTIVE: Mr. Og Chen is a 71-year-old gentleman who is postop day #2 status post left total h ip arthroplasty. There were no acute overnight events. The patient localizes no complaints this a. m. He has been working with physical therapy. Per Orthopedic Surgery, he is stable for discharge t [facility]. OBJECTIVE: VITAL SIGNS: Temperature 98 degrees, pulse 84, respirations 16, O2 sat 94% on room air, and blood p ressure 138/82. GENERAL: Well-developed, well-nourished elderly male in no acute distress. PULMONARY: Normal work of breathing. Symmetric rise. CARDIOVASCULAR: Regular rate and rhythm. GASTROINTESTINAL: Abdomen is soft, nontender, nondistended. MUSCULOSKELETAL: Moves all extremities x4, restrained per [employer]'s protocols. NEUROLOGIC: No focal deficit noted. LABORATORY DATA: WBC 10.6, hemoglobin 12.1, hematocrit 37.5, and platelet count 184. ASSESSMENT: 1. Status post fall from toilet. 2. Left hip fracture, postop day #2 status post total hip arthroplasty. 3. Acute traumatic pain secondary to above. 4. History of hypertension. 5. History of diabetes. 6. Communication barrier secondary to patient's hearing loss. PLAN: Continue supportive care. Continue PT and OT. Continue pain management as ordered. Continu e to encourage pulmonary toilet and mobility. [facility], discussed wit h case management. This patient was seen and evaluated by Trauma attending. All questions were answered at the time of this dictation.
[2017-05-30] MEDS: metFORMIN 500 MG TAB PO SCH (15:59)
[2017-05-31] MEDS: Acetaminophen 500 MG TAB PO SCH ×5 (00:24→23:45)
[2017-05-31] MEDS: traMADol HCl 50 MG TAB PO SCH ×4 (02:54→21:20)
[2017-05-31 05:36] LABS: Hematocrit 35.8 % (42.0-52.0); Mean Platelet Volume 7.9 fL (7.4-10.4); Red Blood Cell (RBC) Count 4.14 mill/uL (4.70-6.10); White Blood Cell (WBC) Count 10.5 thou/uL (4.8-10.8)
[2017-05-31] MEDS: glipiZIDE 10 MG TAB PO SCH (06:29)
[2017-05-31] MEDS: Levothyroxine Sodium 50 MCG TAB PO SCH (06:29)
[2017-05-31] MEDS: Mometasone 100 MCG HFA INHALER INH SCH ×2 (06:40→19:36)
[2017-05-31] MEDS: Senokot S 8.6-50 MG TAB PO SCH ×2 (08:08→21:22)
[2017-05-31] MEDS: metFORMIN 500 MG TAB PO SCH ×2 (08:08→17:10)
[2017-05-31] MEDS: Hydrochlorothiazide 25 MG TAB PO SCH (08:08)
[2017-05-31] MEDS: Atorvastatin Calcium 10 MG TAB PO SCH (08:09)
[2017-05-31] MEDS: Lisinopril 20 MG TAB PO SCH (08:09)
[2017-05-31] MEDS: Verapamil SR 120 MG TAB PO SCH ×2 (08:09→21:22)
[2017-05-31] MEDS: Amoxicillin/Potassium Clav 875 MG TAB PO SCH ×2 (08:09→21:22)
[2017-05-31] MEDS: Ferrous Gluconate 324 MG TAB PO SCH ×2 (08:09→21:22)
[2017-05-31] MEDS: Aspirin 325 MG TAB PO SCH ×2 (08:09→21:22)
[2017-05-31] MEDS: Multivitamin W/ Minerals 1 TAB PO SCH (08:16)
--- NOTE | 2017-05-31 11:37 | PDOC.PN ---
- Subjective Encounter Start Date: 05/31/17 Encounter Start Time: 08:10 -: old records requested/rev Patient seen and examined. No new complaints. No overnight events - Objective MAR Reviewed: Yes Vital Signs & Weight: Vital Signs (12 hours) Temp Pulse Resp BP BP Pulse Ox 05/31/17 11:18 97.9 F 79 18 122/77 95 05/31/17 08:09 144/68 H 05/31/17 07:55 97.6 F 105 H 18 134/81 93 L 05/31/17 03:56 97.6 F 85 19 135/75 91 L 05/31/17 00:00 97.9 F 80 18 133/81 95 Weight Admit Weight 226 lb 15.968 oz Weight 226 lb 15.968 oz I&O: 05/30/17 05/31/17 06/01/17 06:59 06:59 06:59 Intake Total 1960 1810 Output Total 2950 450 Balance -990 1360 Result Diagrams: 05/31/17 05:01 05/29/17 05:08 Additional Labs: Accuchecks 05/31/17 05/31/17 05/30/17 10:28 05:08 19:45 POC Glucose 215 H 225 H 192 H 05/30/17 15:33 POC Glucose 271 H Phys Exam - Physical Examination Constitutional: NAD HEENT: PERRLA, moist MMs, sclera anicteric Neck: no JVD, supple Respiratory: no wheezing, no rales, no rhonchi Cardiovascular: RRR, no significant murmur, no rub Gastrointestinal: soft, non-tender, no distention, positive bowel sounds Musculoskeletal: no edema, pulses present Neurological: non-focal Lymphatic: no nodes Psychiatric: normal affect, A&O x 3 Deviation from normal: hard of hearing Skin: no rash, normal turgor Dx/Plan (1) Fall Code(s): W19.XXXA - UNSPECIFIED FALL, INITIAL ENCOUNTER Status: Acute Qualifiers: Encounter type: initial encounter Qualified Code(s): W19.XXXA - Unspecified fall, initial encounter (2) S/P total hip arthroplasty Code(s): Z96.649 - PRESENCE OF UNSPECIFIED ARTIFICIAL HIP JOINT Status: Acute Qualifiers: Laterality: left Qualified Code(s): Z96.642 - Presence of left artificial hip joint (3) Asthma Code(s): J45.909 - UNSPECIFIED ASTHMA, UNCOMPLICATED Status: Chronic Qualifiers: Asthma severity: mild (4) DM2 (diabetes mellitus, type 2) Status: Chronic Qualifiers: Diabetes mellitus complication status: with hyperglycemia (5) HLD (hyperlipidemia) Code(s): E78.5 - HYPERLIPIDEMIA, UNSPECIFIED Status: Chronic (6) HTN (hypertension) Code(s): I10 - ESSENTIAL (PRIMARY) HYPERTENSION Status: Chronic Qualifiers: Hypertension type: essential hypertension Qualified Code(s): I10 - Essential (primary) hypertension (7) JEFERSON (acute kidney injury) Code(s): N17.9 - ACUTE KIDNEY FAILURE, UNSPECIFIED Status: Resolved (8) Leucocytosis Code(s): D72.829 - ELEVATED WHITE BLOOD CELL COUNT, UNSPECIFIED Status: Resolved - Plan cont current plan of care, PT/OT, social media content manager * [facility] bed availability * medically stable with current treatment * medication reviewed as below * symptomatic treatment. * aspirin for DVT prophylaxis Review of Systems - Review of Systems ENT: negative: Ear Pain, Ear Discharge, Nose Pain, Nose Discharge, Nose Congestion, Mouth Pain, Mouth Swelling, Throat Pain, Throat Swelling, Other Respiratory: negative: Cough, Dry, Shortness of Breath, Hemoptysis, SOB with Excertion, Pleuritic Pain, Sputum, Wheezing Cardiovascular: negative: Chest Pain, Palpitations, Orthopnea, Paroxysmal Noc. Dyspnea, Edema, Light Headedness, Other Gastrointestinal: negative: Nausea, Vomiting, Abdominal Pain, Diarrhea, Constipation, Melena, Hematochezia, Other Genitourinary: negative: Dysuria, Frequency, Incontinence, Hematuria, Retention , Other Musculoskeletal: negative: Neck Pain, Shoulder Pain, Arm Pain, Back Pain, Hand Pain, Leg Pain, Foot Pain, Other Skin: negative: Rash, Lesions, Ton[place], Bruising, Other - Medications/Allergies Allergies/Adverse Reactions: Allergies Allergy/AdvReac Type Severity Reaction Status Date / Time GLYCOAMINOGLYCANS Allergy Uncoded 05/28/17 01:23 Medications: Current Medications Acetaminophen (Tylenol) 1,000 mg PO Q6HR UNIQUE Last Admin: 05/31/17 06:29 Dose: 1,000 mg Albuterol Sulfate (Proventil Hfa) 1 puff INH QID PRN PRN Reason: SOB &/or Wheezing Albuterol/Ipratropium (Duoneb) 3 ml NEB [id number] PRN PRN Reason: SOB &/or Wheezing Amoxicillin/Clavulanate Potassium (Augmentin) 875 mg PO Q12HR COUNT INCLUDES THE [facility] Last Admin: 05/31/17 08:09 Dose: 875 mg Aspirin (Aspirin) 325 mg PO BID COUNT INCLUDES THE [facility] Last Admin: 05/31/17 08:09 Dose: 325 mg Atorvastatin Calcium (Lipitor) 10 mg PO DAILY COUNT INCLUDES THE [facility] Last Admin: 05/31/17 08:09 Dose: 10 mg Dextrose/Water (Dextrose 50%) 25 gm SLOW IVP PRN PRN PRN Reason: Hypoglycemia Diphenhydramine HCl (Benadryl) 25 mg PO Q6H PRN PRN Reason: Itching Ferrous Gluconate (Fergon) 324 mg PO BID COUNT INCLUDES THE [facility] Last Admin: 05/31/17 08:09 Dose: 324 mg Glipizide (Glucotrol) 10 mg PO DAILY-[facility] Last Admin: 05/31/17 06:29 Dose: 10 mg Glucagon (Glucagon) 1 mg IM PRN PRN PRN Reason: Hypoglycemia Hydrochlorothiazide (Hydrochlorothiazide) 25 mg PO DAILY COUNT INCLUDES THE [facility] Last Admin: 05/31/17 08:08 Dose: 25 mg Dextrose/Water (D5w) 1,000 mls @ 0 mls/hr IV .Q0M PRN; As Directed PRN Reason: Hypoglycemia Insulin Human Lispro (Humalog) 0 units SC .BEDTIME SLIDING SC PRN PRN Reason: Bedtime Correctional Scale Last Admin: 05/29/17 20:47 Dose: 2 unit Insulin Human Lispro (Humalog) 0 units SC .AGGRESSIVE SLIDING PRN PRN Reason: Aggressive Correctional Scale Last Admin: 05/30/17 12:17 Dose: 9 unit Iron/Minerals/Multivitamins (Theragran M) 1 tab PO DAILY COUNT INCLUDES THE [facility] Last Admin: 05/31/17 08:16 Dose: 1 tab Ketorolac Tromethamine (Toradol) 30 mg IVP Q6H PRN PRN Reason: Pain Stop: 06/04/17 12:58 Levothyroxine Sodium (Synthroid) 50 mcg PO 0600 COUNT INCLUDES THE [facility] Last Admin: 05/31/17 06:29 Dose: 50 mcg Lisinopril (Zestril) 20 mg PO DAILY COUNT INCLUDES THE [facility] Last Admin: 05/31/17 08:09 Dose: 20 mg Metformin HCl (Glucophage) 500 mg PO BID-WM COUNT INCLUDES THE [facility] Last Admin: 05/31/17 08:08 Dose: 500 mg Mometasone Furoate (Asmanex Hfa 100 Mcg) 1 puff INH BID-RT COUNT INCLUDES THE [facility] Last Admin: 05/31/17 06:40 Dose: 1 puff Ondansetron HCl (Zofran) 4 mg IVP Q6H PRN PRN Reason: Nausea/Vomiting Pantoprazole Sodium (Protonix) 40 mg PO DAILY COUNT INCLUDES [facility] Last Admin: 05/31/17 08:09 Dose: 40 mg Phenol (Chloraseptic [place] 180 Ml Bot) 0 ml PO BIDPRN PRN PRN Reason: Sore Throat Promethazine HCl (Phenergan) 12.5 mg IM Q4H PRN PRN Reason: Nausea/Vomiting Senna/Docusate Sodium (Senokot S) 2 tab PO BID COUNT INCLUDES THE [facility] Last Admin: 05/31/17 08:08 Dose: 2 tab Sodium Chloride (Flush - Normal Saline) 10 ml IVF PRN PRN PRN Reason: Saline Flush Tramadol HCl (Ultram) 50 mg PO Q6H PRN PRN Reason: mod-severe pain Tramadol HCl (Ultram) 50 mg PO Q6H COUNT INCLUDES [facility] Last Admin: 05/31/17 08:11 Dose: 50 mg Verapamil HCl (Calan Sr) 120 mg PO BID COUNT INCLUDES THE [facility] Last Admin: 05/31/17 08:09 Dose: 120 mg
--- NOTE | 2017-05-31 13:44 | DIS ---
DATE OF ADMISSION: 05/27/2017 DATE OF DISCHARGE: 05/31/2017 ADMISSION DIAGNOSES: 1. Status post ground level fall. 2. Left femoral neck fracture. 3. Acute traumatic pain. 4. History of hypertension. 5. History of diabetes. 6. Communication barrier secondary to the patient's hearing loss. 7. History of head trauma in setting of aspirin use. CONSULTATIONS: Orthopedics, Dr. Beyer. PROCEDURES: Left hip total arthroplasty. SUMMARY: The patient is a 71-year-old man who is currently incarcerated in one of the [facility] facilities here, who reportedly had a fall from ground level after getting dizzy. The patient hinson s a history of vertigo by report. He was brought to the emergency department, evaluated, examined a nd noted to have the above injuries. The patient will be admitted to the surgical floor and the [facility] would undergo his above procedure. The patient tolerated this procedure well. The patie nt would then be moved to the surgical floor where he would start working with physical and occupati onal therapy. The patient at the time of discharge was ambulating with a walker with minimal assist ance. His pain was controlled. He was tolerating a diet and his bowel function had returned. The patient will be discharged to the [facility] to continue his care. The patient may follow up with Dr Wanda Beyer in 2 weeks, sooner as needed. The patient may also follow up with [facility]uma [facility] as needed. The patient's vertigo and continuation of that care to include his diabetes and hypertension will be resumed by his primary care provider.
[2017-05-31] MEDS: HumaLOG 300 UNITS/3 ML VIAL SC PRN (18:13)
[2017-06-01] MEDS: traMADol HCl 50 MG TAB PO SCH ×3 (02:46→14:08)
[2017-06-01 05:16] LABS: Hematocrit 33.7 % (42.0-52.0); Mean Platelet Volume 7.3 fL (7.4-10.4); White Blood Cell (WBC) Count 8.6 thou/uL (4.8-10.8)
[2017-06-01] MEDS: Mometasone 100 MCG HFA INHALER INH SCH (06:48)
[2017-06-01] MEDS: Acetaminophen 500 MG TAB PO SCH ×2 (06:51→11:20)
[2017-06-01] MEDS: Levothyroxine Sodium 50 MCG TAB PO SCH (06:52)
--- NOTE | 2017-06-01 07:18 | PDOC.PN ---
- Subjective Encounter Start Date: 06/01/17 Encounter Start Time: 07:17 Patient seen and examined. No new complaints. No overnight events - Objective MAR Reviewed: Yes Vital Signs & Weight: Vital Signs (12 hours) Temp Pulse Resp BP Pulse Ox 06/01/17 06:48 79 16 93 L 06/01/17 00:32 98.0 F 81 18 119/72 90 L 05/31/17 20:00 98.2 F 84 20 112/69 93 L 05/31/17 19:36 87 14 93 L Weight Admit Weight 226 lb 15.968 oz Weight 226 lb 15.968 oz I&O: 05/31/17 06/01/17 06/02/17 06:59 06:59 06:59 Intake Total 1810 3200 Output Total 450 1550 Balance 1360 1650 Result Diagrams: 06/01/17 04:58 05/29/17 05:08 Additional Labs: Accuchecks 06/01/17 05/31/17 05/31/17 05:07 21:08 16:01 POC Glucose 169 H 114 H 212 H 05/31/17 10:28 POC Glucose 215 H Phys Exam - Physical Examination Constitutional: NAD HEENT: moist MMs, sclera anicteric Neck: no JVD, supple Respiratory: no wheezing, no rales, no rhonchi Cardiovascular: RRR, no significant murmur, no rub Gastrointestinal: soft, non-tender, no distention, positive bowel sounds Musculoskeletal: no edema, pulses present Neurological: non-focal, normal sensation Lymphatic: no nodes Psychiatric: normal affect Skin: no rash, normal turgor Dx/Plan (1) Fall Code(s): W19.XXXA - UNSPECIFIED FALL, INITIAL ENCOUNTER Status: Acute Qualifiers: Encounter type: initial encounter Qualified Code(s): W19.XXXA - Unspecified fall, initial encounter (2) S/P total hip arthroplasty Code(s): Z96.649 - PRESENCE OF UNSPECIFIED ARTIFICIAL HIP JOINT Status: Acute Qualifiers: Laterality: left Qualified Code(s): Z96.642 - Presence of left artificial hip joint (3) Asthma Code(s): J45.909 - UNSPECIFIED ASTHMA, UNCOMPLICATED Status: Chronic Qualifiers: Asthma severity: mild (4) DM2 (diabetes mellitus, type 2) Status: Chronic Qualifiers: Diabetes mellitus complication status: with hyperglycemia (5) HLD (hyperlipidemia) Code(s): E78.5 - HYPERLIPIDEMIA, UNSPECIFIED Status: Chronic (6) HTN (hypertension) Code(s): I10 - ESSENTIAL (PRIMARY) HYPERTENSION Status: Chronic Qualifiers: Hypertension type: essential hypertension Qualified Code(s): I10 - Essential (primary) hypertension (7) JEFERSON (acute kidney injury) Code(s): N17.9 - ACUTE KIDNEY FAILURE, UNSPECIFIED Status: Resolved (8) Leucocytosis Code(s): D72.829 - ELEVATED WHITE BLOOD CELL COUNT, UNSPECIFIED Status: Resolved - Plan cont current plan of care, continue antibiotics, PT/OT, social science research assistant * overall medically stable with current treatment * pt needs more PT, so [facility] bed availability * medication reviewed as below * symptomatic treatment * pain controlled * will follow. * continue aspirin for DVT prophylaxis * protonix for GI prophylaxis * code status- full code Review of Systems - Review of Systems ENT: negative: Ear Pain, Ear Discharge, Nose Pain, Nose Discharge, Nose Congestion, Mouth Pain, Mouth Swelling, Throat Pain, Throat Swelling, Other Respiratory: negative: Cough, Dry, Shortness of Breath, Hemoptysis, SOB with Excertion, Pleuritic Pain, Sputum, Wheezing Cardiovascular: negative: Chest Pain, Palpitations, Orthopnea, Paroxysmal Noc. Dyspnea, Edema, Light Headedness, Other Gastrointestinal: negative: Nausea, Vomiting, Abdominal Pain, Diarrhea, Constipation, Melena, Hematochezia, Other Genitourinary: negative: Dysuria, Frequency, Incontinence, Hematuria, Retention , Other Musculoskeletal: negative: Neck Pain, Shoulder Pain, Arm Pain, Back Pain, Hand Pain, Leg Pain, Foot Pain, Other - Medications/Allergies Allergies/Adverse Reactions: Allergies Allergy/AdvReac Type Severity Reaction Status Date / Time GLYCOAMINOGLYCANS Allergy Uncoded 05/28/17 01:23 Medications: Current Medications Acetaminophen (Tylenol) 1,000 mg PO Q6HR UNIQUE Last Admin: 06/01/17 06:51 Dose: 1,000 mg Albuterol Sulfate (Proventil Hfa) 1 puff INH QID PRN PRN Reason: SOB &/or Wheezing Albuterol/Ipratropium (Duoneb) 3 ml NEB [id number] PRN PRN Reason: SOB &/or Wheezing Amoxicillin/Clavulanate Potassium (Augmentin) 875 mg PO Q12HR [facility] Last Admin: 05/31/17 21:22 Dose: 875 mg Aspirin (Aspirin) 325 mg PO BID [facility] Last Admin: 05/31/17 21:22 Dose: 325 mg Atorvastatin Calcium (Lipitor) 10 mg PO DAILY [facility] Last Admin: 05/31/17 08:09 Dose: 10 mg Dextrose/Water (Dextrose 50%) 25 gm SLOW IVP PRN PRN PRN Reason: Hypoglycemia Diphenhydramine HCl (Benadryl) 25 mg PO Q6H PRN PRN Reason: Itching Ferrous Gluconate (Fergon) 324 mg PO BID [facility] Last Admin: 05/31/17 21:22 Dose: 324 mg Glipizide (Glucotrol) 10 mg PO DAILY-[facility] Last Admin: 05/31/17 06:29 Dose: 10 mg Glucagon (Glucagon) 1 mg IM PRN PRN PRN Reason: Hypoglycemia Hydrochlorothiazide (Hydrochlorothiazide) 25 mg PO DAILY [facility] Last Admin: 05/31/17 08:08 Dose: 25 mg Dextrose/Water (D5w) 1,000 mls @ 0 mls/hr IV .Q0M PRN; As Directed PRN Reason: Hypoglycemia Insulin Human Lispro (Humalog) 0 units SC .BEDTIME SLIDING SC PRN PRN Reason: Bedtime Correctional Scale Last Admin: 05/29/17 20:47 Dose: 2 unit Insulin Human Lispro (Humalog) 0 units SC .AGGRESSIVE SLIDING PRN PRN Reason: Aggressive Correctional Scale Last Admin: 05/31/17 18:13 Dose: 6 unit Iron/Minerals/Multivitamins (Theragran M) 1 tab PO DAILY [facility] Last Admin: 05/31/17 08:16 Dose: 1 tab Ketorolac Tromethamine (Toradol) 30 mg IVP Q6H PRN PRN Reason: Pain Stop: 06/04/17 12:58 Levothyroxine Sodium (Synthroid) 50 mcg PO 0600 [facility] Last Admin: 06/01/17 06:52 Dose: 50 mcg Lisinopril (Zestril) 20 mg PO DAILY [facility] Last Admin: 05/31/17 08:09 Dose: 20 mg Metformin HCl (Glucophage) 500 mg PO BID-[facility] Last Admin: 11/14/17 17:10 Dose: 500 mg Mometasone Furoate (Asmanex Hfa 100 Mcg) 1 puff INH BID-RT [facility] Last Admin: 06/01/17 06:48 Dose: 1 puff Ondansetron HCl (Zofran) 4 mg IVP Q6H PRN PRN Reason: Nausea/Vomiting Pantoprazole Sodium (Protonix) 40 mg PO DAILY [facility] Last Admin: 05/31/17 08:09 Dose: 40 mg Phenol (Chloraseptic [place] 180 Ml Bot) 0 ml PO BIDPRN PRN PRN Reason: Sore Throat Promethazine HCl (Phenergan) 12.5 mg IM Q4H PRN PRN Reason: Nausea/Vomiting Senna/Docusate Sodium (Senokot S) 2 tab PO BID [facility] Last Admin: 05/31/17 21:22 Dose: 2 tab Sodium Chloride (Flush - Normal Saline) 10 ml IVF PRN PRN PRN Reason: Saline Flush Tramadol HCl (Ultram) 50 mg PO Q6H PRN PRN Reason: mod-severe pain Tramadol HCl (Ultram) 50 mg PO Q6H [facility] Last Admin: 06/01/17 02:46 Dose: Not Given Verapamil HCl (Calan Sr) 120 mg PO BID [facility] Last Admin: 05/31/17 21:22 Dose: 120 mg
[2017-06-01] MEDS: glipiZIDE 10 MG TAB PO SCH (08:05)
[2017-06-01] MEDS: metFORMIN 500 MG TAB PO SCH (08:05)
[2017-06-01] MEDS: Aspirin 325 MG TAB PO SCH (08:06)
[2017-06-01] MEDS: Lisinopril 20 MG TAB PO SCH (08:06)
[2017-06-01] MEDS: Verapamil SR 120 MG TAB PO SCH (08:06)
[2017-06-01] MEDS: Hydrochlorothiazide 25 MG TAB PO SCH (08:06)
[2017-06-01] MEDS: Amoxicillin/Potassium Clav 875 MG TAB PO SCH (08:06)
[2017-06-01] MEDS: Atorvastatin Calcium 10 MG TAB PO SCH (08:06)
[2017-06-01] MEDS: Senokot S 8.6-50 MG TAB PO SCH ×2 (08:07→08:08)
[2017-06-01] MEDS: Multivitamin W/ Minerals 1 TAB PO SCH (08:07)
[2017-06-01] MEDS: Ferrous Gluconate 324 MG TAB PO SCH (08:07)
[2017-06-01] MEDS ORDERED: Ibuprofen 800 MG TAB PO SCH (08:30)
[2017-06-01] MEDS ORDERED: Ibuprofen 800 MG TAB PO PRN (08:31)
[2017-06-01 13:47] VITALS: BP 129/79; TEMP 98.1
--- NOTE | 2017-06-25 16:12 | EKG ---
Test Reason : Blood Pressure : / mmHG Vent. Rate : 063 BPM Atrial Rate : 063 BPM P-R Int : 172 ms QRS Dur : 088 ms QT Int : 454 ms P-R-T Axes : 066 -16 040 degrees QTc Int : 464 ms Normal sinus rhythm Normal ECG Confirmed by DIO POLANCO, VIOLET Elam ([id number]), news assignment editor UMESH MERRILL ([id number]) on 06/25/2017 4:12:15 PM Referred By: Confirmed By:VIOLET WHARTON MD
== END 2017-06-01 15:07 | DRG 470 ==
LOC: ERS 17:07 → SURG A 19:03
PROVIDERS: ADMIT Orthopaedic Surgery; ATTEND Orthopaedic Surgery
PROC: 0SRB02A Replacement of Left Hip Joint with Metal on Polyethylene Synthetic Substitute, Uncemented, Open Approach (ICD-10-PCS; principal; 2017-05-27)
DX: S72.012A Unspecified intracapsular fracture of left femur, initial encounter for closed fracture (principal); N17.9 Acute kidney failure, unspecified; I10 Essential (primary) hypertension; E03.9 Hypothyroidism, unspecified; D72.829 Elevated white blood cell count, unspecified; W18.11XA Fall from or off toilet without subsequent striking against object, initial encounter; Y92.149 Unspecified place in prison as the place of occurrence of the external cause; G89.11 Acute pain due to trauma; H91.93 Unspecified hearing loss, bilateral; G89.29 Other chronic pain; M54.5 Low back pain; J45.909 Unspecified asthma, uncomplicated; Z79.82 Long term (current) use of aspirin; F80.4 Speech and language development delay due to hearing loss; M19.90 Unspecified osteoarthritis, unspecified site; E78.5 Hyperlipidemia, unspecified; E11.65 Type 2 diabetes mellitus with hyperglycemia
CPT/HCPCS: 36415; 36416; 70450; 71010; 72125; 80048; 80053; 85025; 85027; 85610; 85730; 87081; 87430; 93005; 94664; C1776; G0390; G8978-GP-CL; G8979-GP-CK; G8987-GO-CK; G8988-GO-CJ; J1885; J2001; J2405; J2704; J2765; J3010